=== PATIENT | female | born 1985 | race Caucasian/White ===

== ENCOUNTER 2025-08-11 23:40 | Emergency (ER) | payer OTHER, SELFPAY ==
[2025-08-11 23:44] VITALS: BP 129/79; PULSE 69; RESP 16; TEMP 36.7; O2SAT 97
[2025-08-11 23:56] VITALS: BP 129/79; PULSE 69; RESP 16; TEMP 36.7; O2SAT 97
[2025-08-12 00:33] LABS: Glucose Negative (Negative)
[2025-08-12 00:50] LABS: C & S Indicated? Yes
--- NOTE | 2025-08-12 00:54 | W.ED.GENAD ---
Discharge Plan Disposition Patient Disposition: Home Condition: Good Discharge Details Clinical Impression: Acute cystitis Primary Care Provider: Unknown,Unknown ED Provider: Carla Cisse Home Meds and New Rx's Prescriptions: New cephalexin 500 mg capsule 500 mg PO QID Qty: 16 0RF Discharge Instructions Instructions: Urinary Tract Infection, Adult ED Additional Instructions: Cephalexin 500mg four times a day for the next 7 days. Call your primary care doctor in the morning to schedule an appointment for within the next 72 hours to followup on your visit here. Return to the emergency department for new or worsening symptoms including fever, flank pain, if your symptoms are not improving after 48 hours, or if you have any other concerns. HPI General Mode of arrival: ambulatory. Date/Time Provider Initiated Documentation: 08/12/25 00:54. Limitations to Documentation: no limitations. Information obtained by: patient. HPI Narrative: 40yo F presenting with dysuria. Symptoms started this afternoon and have been worsening; urinary frequency, dysuria, and then hematuria. Mild suprapubic pain. No fevers or flank pain. Has had UTIs in the past that felt like this, none in the last several years. Otherwise in her usual state of health. Related Data Home Medications ?Medication ?Instructions ?Recorded ?Confirmed cephalexin 500 mg capsule 500 mg PO QID #16 caps 08/12/25 Previous Rx's ?Medication ?Instructions ?Recorded cephalexin 500 mg capsule 500 mg PO QID #16 caps 08/12/25 Allergies Allergy/AdvReac Type Severity Reaction Status Date / Time metronidazole Allergy Intermediate Vomiting Verified 08/11/25 23:48 General Stated Complaint: Urinary TRUONG: 4 Review of Systems Narrative: see HPI Exam Narrative Exam Narrative: General: Alert, well appearing, well nourished, in no acute distress. Head: Normocephalic, atraumatic Neck: Trachea midline, ?Neck supple. Cardiac: ?Well perfused Resp: No respiratory distress. Speaking in full sentences. Abd: ?Soft, non-distended, nontender : ?Mild suprapubic tenderness. No CVA tenderness. Extremities: ?No deformities.? No peripheral edema. Neurologic: GCS 15. ? Moves all extremities freely against gravity Course Vital Signs Vital signs: Vital Signs Temperature 36.7 C 08/11/25 23:44 Pulse 69 08/11/25 23:44 Respiratory Rate 16 08/11/25 23:44 Blood Pressure 129/79 08/11/25 23:44 Pulse Oximetry 97 08/11/25 23:44 Temperature 36.7 C 08/11/25 23:56 Temperature Source Oral 08/11/25 23:56 Pulse 69 08/11/25 23:56 Respiratory Rate 16 08/11/25 23:56 Blood Pressure 129/79 08/11/25 23:56 Blood Pressure Position Sitting 08/11/25 23:56 Pulse Oximetry 97 08/11/25 23:56 Oxygen Delivery Method Room Air 08/11/25 23:56 Oxygen Flow Rate 0 08/11/25 23:56 Pain Level 4 08/11/25 23:56 Lab/Test Results Lab/Test Results: 08/12/25 00:00 Urine - Reflex from Ua Urine Culture - Pending Laboratory Tests Range/Units 08/12/25 00:00 Urine Color (Yellow) Yellow Urine Clarity (Clear) Clear Urine pH (5-8) 6.5 Ur Specific [place] (1.005-1.025) <= 1.005 Urine Protein (Neg-Trace) mg/dL Negative Urine Ketones (Negative) mg/dL Negative Urine Blood (Negative) Large H Urine Nitrite (Negative) Negative Urine Bilirubin (Negative) Negative Urine Urobilinogen (Up to 0.2) mg/dL 0.2 Ur Leukocyte Esterase (Negative) Moderate H Urine RBC (0-2) HPF 10-20 H Urine WBC (0-5) HPF 10-20 H Ur Epithelial Cells (Negative) HPF Negative Urine Crystals (Negative) HPF Negative Urine Bacteria (Negative) HPF Few Urine Casts (Negative) LPF Negative Urine Mucus (Negative) Negative Ur Culture Indicated? Yes Urine Glucose (Negative) mg/dL Negative Medical Decision Making 40yo previously healthy F presenting with dysuria. Vital signs reassuring on arrival; mild suprapubic tenderness on exam. No systemic symptoms or flank pain. Not septic, not suggestive of pyelonephritits. UA consistent with UTI. Will treat with 5 day course of cephalexin. Discharged home; discharge instructions and return precuations were reviewed with patient who verbalized understanding. All questions were answered and she is in full agremeent with the plan. Lab Data Lab results reviewed: Yes I reviewed the patient's lab results. Labs: 08/12/25 00:00 Urine - Reflex from Ua Urine Culture - Pending Laboratory Tests Range/Units 08/12/25 00:00 Urine Color (Yellow) Yellow Urine Clarity (Clear) Clear Urine pH (5-8) 6.5 Ur Specific [place] (1.005-1.025) <= 1.005 Urine Protein (Neg-Trace) mg/dL Negative Urine Ketones (Negative) mg/dL Negative Urine Blood (Negative) Large H Urine Nitrite (Negative) Negative Urine Bilirubin (Negative) Negative Urine Urobilinogen (Up to 0.2) mg/dL 0.2 Ur Leukocyte Esterase (Negative) Moderate H Urine RBC (0-2) HPF 10-20 H Urine WBC (0-5) HPF 10-20 H Ur Epithelial Cells (Negative) HPF Negative Urine Crystals (Negative) HPF Negative Urine Bacteria (Negative) HPF Few Urine Casts (Negative) LPF Negative Urine Mucus (Negative) Negative Ur Culture Indicated? Yes Urine Glucose (Negative) mg/dL Negative PFSH All Active Problems (Updated 08/12/25 @ 01:05 by Carla Cisse MD) Acute cystitis (Acute) Social History Smoking/Tobacco Use Status: Never Smoking risk assessment performed?: Yes Alcohol Intake: never Drug use: Never Substance use type: does not use Do you feel safe at home: Yes Do you feel safe in your relationship?: Yes
[2025-08-12] MEDS: Cephalexin 500 MG CAP, 4 CAPS/BTL PO (01:14)
[2025-08-12] MEDS: Cephalexin 500 MG CAP PO (01:14)
--- NOTE | 2025-08-14 09:46 | NUR.NOTE ---
Accessed Pt chart to document antibiotics on the positive specimen report. Report was given to providers.
--- NOTE | 2025-08-14 14:48 | W.ED.FU ---
Date of service: 08/14/25 Time of Service: 14:48 Follow Up Plan: This patient was seen in the emergency department 2 days ago diagnosed with acute cystitis. Her urine culture resulted on my shift. She had been given cephalexin 500 mg 4 times daily. Her urine culture showed that she was growing E. coli greater than 100,000 colony-forming units. Her E. coli was unfortunately resistant to cefazolin. She would likely benefit from oral 2nd or 3rd generation cephalosporin. I called the patient. She had a confidential voicemail set up with her name. I left her message requesting that she call the ED.
== END 2025-08-12 01:16 | disposition home or self-care (01) ==
PROVIDERS: Emergency Provider Student in an Organized Health Care Education/Training Program
DX: N30.01 Acute cystitis with hematuria (principal)
CPT/HCPCS: 87077; 99283; 81003; 81015; 87086; 87186